=== PATIENT | female | born 1935 | race Caucasian/White ===

== ENCOUNTER 2017-06-19 19:18 | Emergency (ER) | payer OTHER, MEDICARE ==
[~2017-06-19] VITALS: Ht 162.6 cm; Wt 110.0 kg
[~2017-06-19 19:18] MED LIST: ASPIR 8181 M1 PO; BACTRIM,SEPT1 TABLET PO; GLIPIZIDE10 M1 PO; LANTUS100 UNIT/1 SQ; LEVOTHROID,S0.175 M1 PO; PLENDIL10 MG PO
[2017-06-19 19:44] LABS: HEMATOCRIT 45.7 % (36.0-46.0); MCH 33.2 PG (29.0-34.0); MCHC 34.4 G/DL (30.0-36.0); MCV 96.6 FL (83-99); RBC DIS.WIDTH-CV 12.7 % (11.8-14.6); RBC DIS.WIDTH-SD 45.6 % (39-53); RED BLOOD COUNT 4.73 M/uL (3.80-5.20); WHITE BLOOD COUNT 8.5 K/uL (4.1-10.2)
[2017-06-19 19:45] LABS: CREATININE 0.8 mg/dL (0.6-1.3)
[2017-06-19 19:54] LABS: CHLORIDE 103 mEq/L (99-109); POTASSIUM 3.9 mEq/L (3.7-5.4); SODIUM 138 mEq/L (136-147)
[2017-06-19 19:57] LABS: GLUCOSE 248 mg/dL (70-99)
[2017-06-19 19:58] LABS: ANION GAP 13 MEQ/L (2-14)
[2017-06-19 19:59] LABS: TOTAL BILIRUBIN 0.5 mg/dL (0.0-1.0)
[2017-06-19 20:00] LABS: ALKALINE PHOSPHATASE 77 IU/L (3-129); GFR ESTIMATE (CALCULATED) 57 mL/min/
[2017-06-19 20:01] LABS: UREA NITROGEN (BUN) 13 mg/dL (9-23)
[2017-06-19 20:04] LABS: LIPASE 26 U/L (1.0-51.0)
[2017-06-19 20:09] LABS: TROP-I INTERPRETATION NEGATIVE; TROPONIN-I < 0.01 ng/mL (0.0-0.30)
[2017-06-19 20:20] LABS: PLAT.SUFFICIENCY DECREASED; PLATELET COUNT 158 K/uL (156-360)
[2017-06-19] MEDS ORDERED: PLAVIX75 MG PO (20:20)
[2017-06-19 21:20] VITALS: BP 123/62
== END 2017-06-19 21:44 | disposition short-term general hospital (02) ==
LOC: EME → EDBD 19:18 → EME 19:18
PROVIDERS: Emergency Medicine
DX: T82.330A Leakage of aortic (bifurcation) graft (replacement), initial encounter (principal); Y83.2 Surgical operation with anastomosis, bypass or graft as the cause of abnormal reaction of the patient, or of later complication, without mention of misadventure at the time of the procedure; I71.4 Abdominal aortic aneurysm, without rupture; E78.5 Hyperlipidemia, unspecified; E03.9 Hypothyroidism, unspecified; F17.200 Nicotine dependence, unspecified, uncomplicated
CPT/HCPCS: 71260; 71275; 74174; 74177; 80047; 80053; 81003; 83605; 83690; 84484; 85027; 86900; 86901; 93005; 99281; 99285; J2405; J3010; J7030; J7050

== ENCOUNTER 2017-06-25 12:24 | Emergency (ER) | payer OTHER, MEDICARE ==
[~2017-06-25] VITALS: Ht 162.6 cm; Wt 104.6 kg
[~2017-06-25 12:24] MED LIST changes: +PLAVIX75 MG PO
[2017-06-25 13:27] LABS: ADD MIUA? YES; BILIRUBIN NEGATIVE; BLOOD SMALL; COLOR YELLOW ((YELLOW)); GLUCOSE (STRIP) 50; KETONES NEGATIVE; LEUKOCYTES LARGE; NITRITE NEGATIVE; PROTEIN (STRIP) 30; SPECIFIC GRAVITY 1.017 (1.000-1.030)
[2017-06-25 13:34] LABS: EOSINOPHIL (%) 1.5 % (0-5); EOSINOPHIL COUNT 0.1 K/uL (0-0.3); HEMATOCRIT 42.6 % (36.0-46.0); IMMATURE GRANULOCYTE (%) 0.6 % (0.0-0.7); IMMATURE GRANULOCYTE COUNT 0.1 K/uL; LYMPHOCYTE COUNT 1.5 K/uL (1.0-2.8); MCH 32.4 PG (29.0-34.0); MCHC 33.8 G/DL (30.0-36.0); MCV 95.9 FL (83-99); MEAN PLAT.VOLUME 10.5 uM^3 (9.5-12.4); MONOCYTE (%) 12.4 % (3-12); MONOCYTE COUNT 1.1 K/uL (0-0.8); NEUTROPHIL (%) 68.1 % (45-76); PLATELET COUNT 182 K/uL (156-360); RBC DIS.WIDTH-CV 12.7 % (11.8-14.6); RBC DIS.WIDTH-SD 44.9 % (39-53); RED BLOOD COUNT 4.44 M/uL (3.80-5.20); WHITE BLOOD COUNT 8.8 K/uL (4.1-10.2)
[2017-06-25 13:45] LABS: BACTERIA RARE /HPF; CALCIUM OXALATE CRYSTALS 3+ /HPF; EPITHELIAL CELLS 1+ /HPF; MUCUS TRACE /LPF; UCUL ADDED? YES; WHITE BLOOD CELLS TNTC /HPF (0-5)
[2017-06-25 14:01] LABS: CHLORIDE 97 mEq/L (99-109); POTASSIUM 3.3 mEq/L (3.7-5.4); SODIUM 136 mEq/L (136-147)
[2017-06-25 14:03] LABS: GLUCOSE 191 mg/dL (70-99)
[2017-06-25 14:05] LABS: ANION GAP 11 MEQ/L (2-14)
[2017-06-25 14:07] LABS: ALKALINE PHOSPHATASE 71 IU/L (3-129); GFR ESTIMATE (CALCULATED) > 59 mL/min/
[2017-06-25 14:08] LABS: UREA NITROGEN (BUN) 10 mg/dL (9-23)
[2017-06-25 14:10] LABS: LIPASE 16 U/L (1.0-51.0)
[2017-06-25 14:25] LABS: TROP-I INTERPRETATION NEGATIVE; TROPONIN-I < 0.01 ng/mL (0.0-0.30)
[2017-06-25] MEDS ORDERED: LEVAQUIN500 MG PO (16:10)
[2017-06-25 18:23] LABS: POINT-OF-CARE METER ID UU13113747
[2017-06-25 20:59] VITALS: BP 140/74
== END 2017-06-25 21:00 | disposition short-term general hospital (02) ==
LOC: EME 12:24
PROVIDERS: Emergency Medicine
DX: I71.4 Abdominal aortic aneurysm, without rupture (principal); N12 Tubulo-interstitial nephritis, not specified as acute or chronic; Z98.890 Other specified postprocedural states; E78.5 Hyperlipidemia, unspecified; E03.9 Hypothyroidism, unspecified; F17.200 Nicotine dependence, unspecified, uncomplicated; Z79.82 Long term (current) use of aspirin
CPT/HCPCS: 71275; 74174; 80053; 81003; 82948; 83690; 84484; 85025; 87040; 87086; 87106; 87801; 99281; 99285; J1956; J2270

== ENCOUNTER → 2017-10-07 | Outpatient (CLI) | payer OTHER, MEDICARE ==
[~2017-10-07] MED LIST changes: +LEVAQUIN500 MG PO
== END | disposition home or self-care (01) ==
LOC: NUC 06:49
DX: R10.13 Epigastric pain (principal)
CPT/HCPCS: 78264; A9541